=== PATIENT | female | born 1950 | race Caucasian/White ===

== ENCOUNTER → 2017-01-24 | Outpatient (CLI) | payer MEDICARE, BC ==
[2017-01-24 09:59] LABS: CH 29.2; CHCM 32.2; HCT 42.5 % (34.0-46.0); HDW 2.74; HGB 13.7 gm/dL (11.4-16.0); MCH 29.2 pg (25.0-35.0); MCHC 32.1 g/dL (31.0-37.0); Mean Platelet Volume 7.8; RBC 4.67 m/uL (3.80-5.40); WBC 5.9 k/uL (3.8-10.6)
[2017-01-24 10:14] LABS: Blood Urea Nitrogen 22 mg/dL (7-17); Non-African American GFR(MDRD) >60 (>60 ml/min/1.73 sqM)
[2017-01-24 14:24] LABS: Erythrocyte Sedimentation Rate 13 mm/hr (0-20)
== END ==
LOC: LABWHC1 09:05
PROVIDERS: ATTEND Orthopaedic Surgery
DX: M25.552 Pain in left hip (principal); M51.17 Intervertebral disc disorders with radiculopathy, lumbosacral region; M70.62 Trochanteric bursitis, left hip; M47.9 Spondylosis, unspecified; M54.16 Radiculopathy, lumbar region
CPT/HCPCS: 36415; 82565; 84165; 84520; 85027; 85652